=== PATIENT | male | born 1970 | race African-American/Black ===

== ENCOUNTER 2020-03-18 09:39 | Outpatient (CLI) | payer MEDICAID | END 2020-03-18 23:59 | disposition home or self-care (01) | LOC: LAB 09:39 | PROVIDERS: ATTEND Student in an Organized Health Care Education/Training Program | DX: Z01.812 Encounter for preprocedural laboratory examination (principal); Z20.828 Contact with and (suspected) exposure to other viral communicable diseases | CPT/HCPCS: 87426; C9803 ==

== ENCOUNTER 2020-03-23 06:19 | Day surgery (SDC) | payer MEDICAID ==
--- NOTE | 2020-03-23 06:10 | NUR ---
MSRN CAME TODAY AMBULATORY, FOR ARTHROSCOPY BY DR. SALAMANCA. ALERT/ORIENTED X4, CONSENTS SIGNED. KEPT NPO. REFUSES VALUABLES TO BE KEPT AT SAFE, .PAIN LEFT KNEE TOLERABLE. BEDREST FOR NOW. SAFETY PRECAUTIONS EMPHASIZED. WELL UNDERSTOOD.
--- NOTE | 2020-03-23 07:39 | NUR ---
MS RN OPENING NOTES PT RECEIVED RESTING IN BED AT MODERATE HIGH BACKREST POSITION. A/O X4. ABLE TO MAKE NEEDS KNOWN, DENIES PAIN OR ANY DISCOMFORTS AT THIS TIME. PT FOR LEFT KNEE SURGERY THIS MORNING, NPO MAINTAINED. ON ROOM AIR, BREATHING EVEN AND UNLABORED. PT WITH NO IV ACCESS AT THIS TIME, WILL RE-INSERT ONE. BED IN LOWEST LOCKED POSITION WITH SR UP X2. WILL CONTINUE TPO MONITOR .
[2020-03-23 08:00] VITALS: BP 124/75
--- NOTE | 2020-03-23 09:57 | NUR ---
RN NOTES PT INSERTED PIV ON HIS LEFT HAND G#22, THEN PICK-UP BY O.R. TRANSPORTED VIA HIS BED FOR LEFT KNEE SURGERY.
[2020-03-23] MEDS ORDERED: MIDAZOLAM HCL 2 MG/2ML VIAL ONE (10:14)
[2020-03-23] MEDS ORDERED: HYDROMORPHONE INJ 2 MG/ML DISP.SYRIN ONE (10:14)
[2020-03-23] MEDS ORDERED: MORPHINE SULFATE/PF 10 MG/10ML (1MG/ML) AMPUL ONE (10:52)
[2020-03-23] MEDS ORDERED: BUPIVACAINE 0.5 % PF 150 MG/30 ML VIAL ONE (10:52)
[2020-03-23] MEDS ORDERED: EPINEPHRINE (1:1000) 1 MG/ML AMPUL ONE (10:52)
[2020-03-23 13:15] VITALS: BP 124/84
[2020-03-23 13:30] VITALS: BP 115/78
--- NOTE | 2020-03-23 13:41 | NUR ---
RN NOTES PT RETURNED TO UNIT S/P LEFT KNEE PMM BY MEGAN FORD. PT IS AWAKE A/O X4. SAME ABLE TO MAKE NEEDS KNOWN, VERBALIZED THAT PAIN IS TOLERABLE AT THIS TIME. DRESSING ON LEFT KNEE WITH HUGO BANDAGE C/D//I. ICED WAS APPLIED AND ELEVATED WITH PILLOWS. DR SALAMANCA WITH ORDER TO DISCHARGE PT WHEN STABLE ORDERED TO REMOVE DRESSING IN 3 DAYS AND F/U WITH HIM IN 2 WEEKS. KEPT BED IN LOWEST LOCKED POSITION WITH SIDE-RAILS UP X2. WILL CONTINUE TO MONITOR PT ACCORDINGLY.
[2020-03-23 13:45] VITALS: BP 125/84
--- NOTE | 2020-03-23 14:17 | NUR ---
RN DISCHARGED NOTES PT DISCHARGED HOME IN STABLE CONDITION. A/O X4. ABLE TO MAKE NEEDS KNOWN. DRESSING WITH HUGO BANDAGE ON LEFT KNEE C/D/I. V/S TAKEN, STABLE AND RECORDED. ALL BELONGINGS ACCOUNTED FOR AND SIGNED FORM. IV ACCESS ON LEFT HAND REMOVED WITH NO BLEEDING NOTED, DRY DRESSING APPLIED. NAME ARMBAND REMOVED. HEALTH TEACHINGS/DISCHARGE INSTRUCTIONS PER DR SALAMANCA GIVEN TO PT AND VERBALIZED UNDERSTANDING. PT LEFT UNIT AMBULATORY @ 1401 ACCOMPANIED BY STERLING REESE. WAS IN THE LOBBY AND TOOK PT'S HOME.
== END 2020-03-23 15:00 | disposition home or self-care (01) ==
LOC: DS 06:19 → MED 06:21 → UNDOADMIN 06:21 → UNDODISIN 15:00 → DS 15:00
PROVIDERS: ATTEND Student in an Organized Health Care Education/Training Program
DX: S83.242A Other tear of medial meniscus, current injury, left knee, initial encounter (principal); X58.XXXA Exposure to other specified factors, initial encounter; Y93.89 Activity, other specified; Y92.89 Other specified places as the place of occurrence of the external cause; Y99.8 Other external cause status; M65.862 Other synovitis and tenosynovitis, left lower leg; M94.262 Chondromalacia, left knee; E66.01 Morbid (severe) obesity due to excess calories; Z79.899 Other long term (current) drug therapy
CPT/HCPCS: 29876; 29880; A4217; A6253; J0171; J0690; J1170; J1885; J2250; J2274; J2405; J2704; J2765; J3490 ×2; G0378